=== PATIENT | male | born 1960 | race African-American/Black ===

== ENCOUNTER 2020-03-17 14:34 | Outpatient (CLI) | payer OTHER, SELFPAY ==
--- NOTE | ~2020-03-17 | MR_ITS ---
EXAMINATION: MR shoulder LT wo con DATE: 03/17/2020 15:37 INDICATION: Left shoulder pain TECHNIQUE: Magnetic resonance imaging (MRI) of the left shoulder was performed without intravenous co ntrast. Sequences included axial PD-weighted FS FSE, coronal oblique PD-weighted FS FSE, coronal obli que T2-weighted FS FSE, sagittal PD-weighted FS FSE, and sagittal T1-weighted SE. COMPARISON: None. FINDINGS: Coracoacromial arch: The acromion undersurface is curved in morphology (type II). The coracoacromial ligament is normal. M oderate acromioclavicular osteoarthritis. Rotator cuff: Mild supraspinatus and infraspinatus tendinopathy without discrete tear. The subscapularis and teres minor tendons are normal. Normal rotator cuff muscle bulk and signal. Biceps tendon, glenoid labrum and glenohumeral cartilage: Long head of the biceps tendon is normal. Linear tear at the base of the 10:00-11:00 position of the posterior superior glenoid labrum. There are marginal osteophytes extending to the base of the racetrack steward ior to posterior inferior labrum. Glenohumeral cartilage appears normal. Fluid: Physiologic amount of fluid in the glenohumeral joint and biceps tendon sheath. No loose osteochondra l bodies. No abnormal fluid signal in the subacromial/subdeltoid bursa to suggest bursitis. Bones: Bone alignment is normal. No fracture or pathologic marrow replacing process. Mild cystic change at t he posterior facet of the greater tuberosity. IMPRESSION: 1. Posterior superior labral tear. 2. Mild supraspinatus and infraspinatus tendinopathy without discrete tear. 3. Moderate acromioclavicular osteoarthritis. Reviewed, dictated and finalized at location A.
== END 2020-03-17 14:35 | disposition home or self-care (01) ==
PROVIDERS: PCP Family Medicine; Visit Provider Orthopaedic Surgery
DX: M19.012 Primary osteoarthritis, left shoulder (principal)
CPT/HCPCS: 73221

== ENCOUNTER 2020-05-30 02:50 | Outpatient (CLI) | payer OTHER, SELFPAY ==
[2020-05-30 18:02] LABS: SARS-CoV-2 RNA PCR Negative
== END 2020-05-30 02:51 | disposition home or self-care (01) ==
LOC: ANHCOVIDDT 02:50
PROVIDERS: PCP Family Medicine; Visit Provider Orthopaedic Surgery
DX: Z01.812 Encounter for preprocedural laboratory examination (principal); Z20.828 Contact with and (suspected) exposure to other viral communicable diseases
CPT/HCPCS: 87635; C9803; U0003

== ENCOUNTER 2020-06-02 01:41 | Day surgery (SDC) | payer OTHER, SELFPAY ==
[2020-05-19 09:54] VITALS: BMI 28.1
--- NOTE | 2020-05-30 15:32 | P.PNAN_ITS ---
Anes - Initial Pre Proc Eval Procedure: Operation Date: 06/02/20 07:30 Proposed Procedures p Left Open Distal Clavicle Excision - Eduardo Gamboa MD Date/Time: 05/30/20 15:32 Surgeon: Eduardo Gamboa MD Pre Op Diagnosis: Left AC Arthritis Patient Data Age: 59 Gender: M Height: 1.73 m Weight: 83.91 kg Allergies Allergy/AdvReac Type Severity Reaction Status Date / Time No Known Allergies Allergy Verified 06/02/20 06:06 Home Medications Medication Instructions Recorded Confirmed Type aspirin 81 mg tablet,delayed 81 mg PO DAILY 01/08/20 06/02/20 History release carvedilol 6.25 mg tablet 6.25 mg PO Q12H 01/08/20 06/02/20 History clopidogrel 75 mg tablet 75 mg PO DAILY 01/08/20 06/02/20 History metformin 500 mg tablet 500 mg PO BID 01/08/20 06/02/20 History rosuvastatin 10 mg tablet 5 mg PO DAILY 03/26/20 06/02/20 History calcium citrate 250 mg PO DAILY 05/19/20 06/02/20 History lisinopril 5 mg PO DAILY 05/19/20 06/02/20 History pfylbdqlyfxp-hez-bste-FA-vit K 1 cap PO DAILY 05/19/20 06/02/20 History [Bariatric Multivitamins] Patient hx anesthesia problems: none Family hx anesthesia problems: none PMFSH Past Medical History Medical History (Updated 05/30/20 @ 15:35 by Holden Barragan MD) CAD (coronary artery disease) coronary stent x 3 Diabetes last A1c noted by pt 6.3 Hypercholesterolemia Hypertension Overweight (BMI 25.0-29.9) Surgical History Surgical History (Updated 05/30/20 @ 15:35 by Holden Barragan MD) H/O gastric bypass History of coronary artery stent placement Social History Social History Smoking packs per day: 1 Smoking cigarettes per day: 20.0 Years smoked: 15 Smoking pack-years: 15.00 Smoking status: Former smoker Tobacco type: cigarettes Additional smoking assessment comments: QUIT 20 YEARS AGO Alcohol intake: never Additional living arrangements comments: [facility] Additional occupation/education comments: [employer] [address] [place] [address] Gender identity (if verbalized by the patient): Male Spiritual care concerns: No Anes - Eval Final PreProcedure Day of Procedure 05/30/20 15:32 Patient weight: overweight Heart: regular rate and rhythm Lungs: clear to auscultation and normal air movement Airway: Mallampati scale class II Neurological: alert and oriented Last oral intake: >/= 8 hours ASA classification: III Emergent: no Anesthetic plan: proceed Anesthesia type and monitoring: general ETT Informed Consent: The patient's anesthetic plan and its attendant risks and benefits were discussed with the patient/family/POA. Questions were solicited and answers provided to the satisfaction of the patient/family/POA.
[2020-06-02] VITALS (7 sets, daily range): BP systolic 132–178; BP diastolic 80–100; PULSE 63–78; RESP 12–16; TEMP 36.2; O2SAT 99–100
[2020-06-02] MEDS: ACETAMINOPHEN 500 MG TABLET 1000 MG PO (06:42)
[2020-06-02] MEDS: KETOROLAC 15 MG/ML VIAL (*BKC) IV PUSH (06:51)
[2020-06-02] MEDS: LACTATED RINGERS 1,000 ML 30 ML IV CONT ×2 (06:53→08:55)
[2020-06-02 06:57] LABS: Glucose Point of Care 108 (65-105)
--- NOTE | 2020-06-02 07:15 | WPDHPUPDATE1 ---
History and Physical Update Update Date/Time: 06/02/20 07:15 History and Physical has been reviewed, including an updated exam of the patient. There are NO changes in the patient's condition. Risks, benefits, and alternatives have been discussed and questions answered. Patient agrees to proceed with procedure.
[2020-06-02] MEDS: ceFAZolin 2 GM/D5W 50 ML 2 GM/50 ML BAG IVPB (07:32)
--- NOTE | 2020-06-02 07:34 | WPDANESPNB ---
Anes - Peripheral Nerve Block Date/Time: 06/02/20 07:34 I have discussed with the patient/family/POA the placement of a peripheral nerve block for post-operative pain management, including associated risks, benefits, complications, and side effects. Alternative methods of post-operative analgesia were detailed. Questions were solicited and answers provided to the satisfaction of the patient/family/POA. Time-Out: A pre-procedural Time-Out was completed immediately before starting the procedure and confirmed: Patient Identification, Site, Procedure, Patient Position and the Availability of Requisite Equipment. Clinical Indications: Acute post-operative pain management requested by the operative surgeon. Nerve Block Insertion Note Anes-nerve block: supraclavicular (10cc) left and other (left superficial cervical plexus - 10cc) Patient position: supine Skin prep: chlorhexidine Needle: 22 gauge, stimulating, insulated echogenic needle. Needle length: 80 mm Technique: ultrasound (in plane) Injectate: bupivacaine 0.5% with epi 5 mcg/ml (20cc) Observations: tolerated well Complications: none Procedure start time:: 725 Procedure end time:: 730
[2020-06-02] MEDS: BUPIVACAINE/EPINEPHRINE 0.25% 50 ML VIAL 10 ML INFILTRATE (08:11)
--- NOTE | 2020-06-02 08:52 | PM.PROC ---
Procedure Note - Detailed Date of procedure: 06/02/20 Pre-op diagnosis: Left AC Arthritis Left AC arthritis with outlet impingement Post-op diagnosis: same Procedure performed: Left shoulder open anterior acromioplasty with distal clavicle excision and debridement of the rotator cuff Description of procedure: Patient was identified and proper site identified. In the preop holding area the anesthesia team performed a right upper extremity block. He was then taken to the operating room and transferred to the or table taking care to pad the torso and extremities. After general anesthetic induction and intubation, he was put in a semi beach chair position in the usual manner for a right shoulder procedure. His head was secured taking care to neither rotate nor extend the head and neck. The right upper extremity was prepped and draped free in usual sterile fashion. The subcutaneous tissue in the area of the incision was injected with 10 cc of 0.25% Marcaine and epinephrine solution. An oblique anterior incision was made extending from the AC joint distally in line with the fibers of the deltoid. Subcutaneous tissue was sharply dissected down to the deltoid fascia. The deltoid was dissected off the anterior portion of the acromion in the distal end of the clavicle. A 2 cm split was made at the junction between the anterior and middle thirds of the deltoid. Using the microsagittal saw the last 8 mm of clavicle removed. The saw was also used to perform the acromioplasty and then the undersurface of the acromion was rasped smooth. There was an abundance of thickened bursa which was sharply debrided off the rotator cuff following for inspection. There was a bit of hyperemia in the area of the rotator cuff underneath the anterior portion of the acromion however no tears were identified. The wound was irrigated with sterile NaCl solution. The deltoid was repaired back to the acromion with 2. Ethibond suture passed through bone and the remainder of the deltoid repair carried out with 2. Vicryl. Subcutaneous tissue was reapproximated with three 0 Monocryl and three 0 V lock was used for the skin along with tissue adhesive. Sterile dressing was applied. There were no known intraoperative complications, and perioperative antibiotics were administered. Anesthesia: GETA and regional Surgeon: Eduadro Gamboa MD Estimated blood loss (mL): 10 Drains: No Packing: No Pathology: none sent Complications: No immediate complications Condition: stable Disposition: PACU
[2020-06-02 09:07] LABS: Glucose Point of Care 106 (65-105)
== END 2020-06-02 10:32 | disposition home or self-care (01) ==
PROVIDERS: PCP Family Medicine; Visit Provider Orthopaedic Surgery
PROC: (CPT 23420; principal; 2020-06-02 07:30)
DX: M19.012 Primary osteoarthritis, left shoulder (principal); M75.42 Impingement syndrome of left shoulder; G89.18 Other acute postprocedural pain; I25.10 Atherosclerotic heart disease of native coronary artery without angina pectoris; E11.9 Type 2 diabetes mellitus without complications; I10 Essential (primary) hypertension; E78.00 Pure hypercholesterolemia, unspecified; Z95.5 Presence of coronary angioplasty implant and graft; Z98.84 Bariatric surgery status; Z87.891 Personal history of nicotine dependence; Z79.02 Long term (current) use of antithrombotics/antiplatelets; Z79.84 Long term (current) use of oral hypoglycemic drugs; Z79.82 Long term (current) use of aspirin
CPT/HCPCS: 23120; A4565; A9270; J0690; J1100; J1170; J1885; J2250; J2370; J2405; J2704; J3010; J7120

== ENCOUNTER 2020-09-24 09:12 | Outpatient (CLI) | payer OTHER, SELFPAY ==
--- NOTE | 2020-09-24 09:15 | ECG_ITS ---
Measurements Intervals [place] Rate: 73 P: 67 TX: 175 QRS: 30 QRSD: 85 T: 56 QT: 370 QTc: 409 Interpretive Statements SINUS RHYTHM BORDERLINE R WAVE PROGRESSION, ANTERIOR LEADS BASELINE ARTIFACT- I, II, AVR, AVL, AVF, V4 BORDERLINE ECG Electronically Signed On 09-24-2020 9:39:51 SILVICULTURE PROFESSOR by Gian Moreno D.O.
[2020-09-24 09:42] LABS: Anion Gap 6 mmol/L (8-16); Blood Urea Nitrogen 11 mg/dL (9-20); Calcium 9.3 mg/dL (8.4-10.2); Carbon Dioxide 34 mmol/L (22-30); Chloride 102 mmol/L (98-107); Estimated Glomerular Filt Rate > 60; Glucose 113 mg/dL (75-110); Potassium 4.2 mmol/L (3.4-5.0); Sodium 142 mmol/L (137-145)
== END 2020-09-24 09:13 | disposition home or self-care (01) ==
LOC: ANHSURGERY 09:15
PROVIDERS: Anesthesiology; PCP Family Medicine; Visit Provider Orthopaedic Surgery
DX: E11.9 Type 2 diabetes mellitus without complications (principal); E78.00 Pure hypercholesterolemia, unspecified; Z95.5 Presence of coronary angioplasty implant and graft; Z01.818 Encounter for other preprocedural examination; R94.31 Abnormal electrocardiogram [ECG] [EKG]
CPT/HCPCS: 36415; 80048; 93005

== ENCOUNTER → 2020-09-26 00:15 | Outpatient (CLI) | payer OTHER, SELFPAY ==
[2020-09-26 22:51] LABS: SARS-CoV-2 RNA PCR Negative
== END ==
PROVIDERS: PCP Family Medicine; Visit Provider Orthopaedic Surgery
DX: Z01.812 Encounter for preprocedural laboratory examination (principal); Z20.822 Contact with and (suspected) exposure to COVID-19
CPT/HCPCS: C9803; U0003; U0005

== ENCOUNTER 2020-09-29 01:32 | Day surgery (SDC) | payer OTHER, SELFPAY ==
[2020-09-22 14:15] VITALS: BMI 29.0
[2020-09-29] VITALS (9 sets, daily range): BP systolic 115–173; BP diastolic 74–91; PULSE 56–78; RESP 10–18; TEMP 36.1–36.3; O2SAT 96–100
--- NOTE | 2020-09-29 07:42 | WPDANESEPPF ---
Anes - Initial Pre Proc Eval Procedure: Operation Date: 09/29/20 10:00 Proposed Procedures p Left Shoulder Arthroscopy, With Subacromial Decompression - Eduardo Gamboa MD Date/Time: 09/29/20 07:42 Surgeon: Eduardo Gamboa MD Pre Op Diagnosis: Left Shoulder Impingement Patient Data Age: 59 Gender: M Height: 1.7 m Weight: 84 kg Allergies Allergy/AdvReac Type Severity Reaction Status Date / Time No Known Allergies Allergy Verified 09/22/20 14:13 Home Medications Medication Instructions Recorded Confirmed Type aspirin 81 mg tablet,delayed 81 mg PO DAILY 01/08/20 09/22/20 History release carvedilol 6.25 mg tablet 6.25 mg PO Q12H 01/08/20 09/22/20 History clopidogrel 75 mg tablet 75 mg PO DAILY 01/08/20 09/22/20 History metformin 500 mg tablet 500 mg PO BID 01/08/20 09/22/20 History rosuvastatin 10 mg tablet 5 mg PO DAILY 03/26/20 09/22/20 History Bariatric Multivitamins 1 cap PO DAILY 05/19/20 09/22/20 History calcium citrate 250 mg PO BID 05/19/20 09/22/20 History lisinopril 5 mg PO DAILY 05/19/20 09/22/20 History tramadol 50 mg tablet 50 mg PO Q8H #30 tablet 09/11/20 09/22/20 Rx Patient hx anesthesia problems: none Family hx anesthesia problems: none PMFSH Past Medical History Medical History CAD (coronary artery disease) coronary stent x 3 Diabetes last A1c noted by pt 6.3 Hypercholesterolemia Hypertension Overweight (BMI 25.0-29.9) Surgical History Surgical History Arthritis of left acromioclavicular joint Left DCE May 2020 H/O gastric bypass History of coronary artery stent placement Social History Social History Smoking packs per day: 1 Smoking cigarettes per day: 20.0 Years smoked: 15 Smoking pack-years: 15.00 Smoking status: Former smoker Tobacco type: cigarettes Smoking end date: 09/22/10 Additional smoking assessment comments: QUIT 20 YEARS AGO Alcohol intake: never Living arrangements: with family Additional living arrangements comments: [facility] Additional occupation/education comments: [employer] [address] [place] [address] Gender identity (if verbalized by the patient): Male Spiritual care concerns: No Anes - Eval Final PreProcedure Day of Procedure 09/29/20 07:42 Patient weight: obese Heart: regular rate and rhythm Lungs: clear to auscultation and normal air movement Airway: Mallampati scale class II Neurological: alert and oriented Last oral intake: >/= 8 hours ASA classification: III Emergent: no Anesthetic plan: proceed Anesthesia type and monitoring: general ETT Informed Consent: The patient's anesthetic plan and its attendant risks and benefits were discussed with the patient/family/POA. Questions were solicited and answers provided to the satisfaction of the patient/family/POA.
--- NOTE | 2020-09-29 07:44 | WPDANESPNB ---
Anes - Peripheral Nerve Block Date/Time: 09/29/20 07:44 I have discussed with the patient/family/POA the placement of a peripheral nerve block for post-operative pain management, including associated risks, benefits, complications, and side effects. Alternative methods of post-operative analgesia were detailed. Questions were solicited and answers provided to the satisfaction of the patient/family/POA. Time-Out: A pre-procedural Time-Out was completed immediately before starting the procedure and confirmed: Patient Identification, Site, Procedure, Patient Position and the Availability of Requisite Equipment. Clinical Indications: Acute post-operative pain management requested by the operative surgeon. Nerve Block Insertion Note Anes-nerve block: supraclavicular left Patient position: supine Skin prep: chlorhexidine Needle: 22 gauge, stimulating, insulated echogenic needle. Needle length: 80 mm Technique: ultrasound (in plane) Injectate: bupivacaine 0.5% with epi 5 mcg/ml (20cc) Observations: tolerated well Complications: none Procedure start time:: 900 Procedure end time:: 905
[2020-09-29] MEDS: LACTATED RINGERS 1,000 ML 30 ML IV CONT ×2 (08:25→10:32)
--- NOTE | 2020-09-29 08:30 | WPDHPUPDATE1 ---
History and Physical Update Update Date/Time: 09/29/20 08:30 History and Physical has been reviewed, including an updated exam of the patient. There are NO changes in the patient's condition. Risks, benefits, and alternatives have been discussed and questions answered. Patient agrees to proceed with procedure.
[2020-09-29] MEDS: ACETAMINOPHEN 500 MG TABLET 1000 MG PO (08:32)
[2020-09-29 08:34] LABS: Glucose Point of Care 105 (65-105)
[2020-09-29] MEDS: KETOROLAC 15 MG/ML VIAL (*BKC) IV PUSH (08:40)
[2020-09-29] MEDS: ceFAZolin 2 GM/D5W 50 ML 2 GM/50 ML BAG IVPB (09:12)
[2020-09-29] MEDS: BUPIVACAINE/EPINEPHRINE 0.25% 50 ML VIAL INFILTRATE (10:01)
[2020-09-29] MEDS: EPINEPHrine HCL INJ 1 MG/ML AMPUL IRRIGATION (10:02)
--- NOTE | 2020-09-29 10:32 | P.OP_ITS ---
Procedure Note - Detailed Date of procedure: 09/29/20 Pre-op diagnosis: Left Shoulder Impingement Post-op diagnosis: same Procedure performed: Left shoulder arthroscopy with arthroscopic subacromial decompression Description of procedure: The patient was identified and proper site identified. In the preop holding area the anesthesia team performed a left upper extremity block. He was then taken to the operating, transferred to the OR table and after general anesthetic induction and intubation placed into the semi beach chair position in the usual manner for a right shoulder procedure. His head was secured taking care to neither rotate or extend the head neck. The right upper extremity was prepped and draped free in the usual sterile fashion. 30 cc of 1:100,000 epinephrine and saline solution was injected into the subacromial s pace. 10 cc of 0.25% Marcaine and epinephrine solution was injected in the area of the portals. Posterior portal was established and under direct visualization anterior outflow was created. The intra-articular portion of the shoulder was in excellent condition. Rotator cuff was intact. Biceps anchor was intact. Very little fraying noted of the articular surfaces. The scope and outflow were then placed into the subacromial space and a lateral working portal created. There was an abundance of an bursal tissue with some areas of inflammation at the anterior portion of the acromion. The shaver and ArthroCare Wand were used to extensively debride the subacromial space and the ArthroCare Wand was used for hemostasis. The entire surgical area was irrigated with saline solution and the equipment was removed. Portals were closed with three 0 nylon suture and sterile dressings applied. He tolerated the procedure well. He was awakened, extubated and taken to recovery area in stable condition. There were no known intraoperative complications. Estimated blood loss was negligible. He received perioperative antibiotics. Anesthesia: GLMA Surgeon: Eduardo Gamboa MD Senior Fire Protection Engineer: Jack Mak Estimated blood loss (mL): 20 Drains: No Packing: No Pathology: none sent Complications: No immediate complications Condition: stable Disposition: PACU
[2020-09-29 10:51] LABS: Glucose Point of Care 123 (65-105)
== END 2020-09-29 12:40 | disposition home or self-care (01) ==
PROVIDERS: PCP Family Medicine; Visit Provider Orthopaedic Surgery
PROC: (CPT 29805; principal; 2020-09-29 10:00)
DX: M75.42 Impingement syndrome of left shoulder (principal); G89.18 Other acute postprocedural pain; I10 Essential (primary) hypertension; I25.10 Atherosclerotic heart disease of native coronary artery without angina pectoris; E78.00 Pure hypercholesterolemia, unspecified; E11.9 Type 2 diabetes mellitus without complications; Z79.82 Long term (current) use of aspirin; Z79.02 Long term (current) use of antithrombotics/antiplatelets; Z79.84 Long term (current) use of oral hypoglycemic drugs; Z87.891 Personal history of nicotine dependence; E66.9 Obesity, unspecified; Z68.29 Body mass index [BMI] 29.0-29.9, adult
CPT/HCPCS: 29822; 64415; 36415; 80048; 82948; 93005; A4565; A9270; C9803; J0171; J0690; J1100; J1885; J2250; J2370; J2405; J2704; J2710; J3010; J7120; U0003; U0005